=== PATIENT | male | born 1995 | race Caucasian/White ===

== ENCOUNTER → 2018-08-28 | Outpatient (CLI) | payer OTHER | LOC: M.CT 09:15 | DX: R10.12 Left upper quadrant pain (principal) ==

== ENCOUNTER → 2019-09-10 | Outpatient (CLI) | payer OTHER | LOC: M.MRI 16:14 | DX: S92.351A Displaced fracture of fifth metatarsal bone, right foot, initial encounter for closed fracture (principal); X58.XXXA Exposure to other specified factors, initial encounter; Y93.89 Activity, other specified; Y92.89 Other specified places as the place of occurrence of the external cause; Y99.8 Other external cause status ==